=== PATIENT | male | born 1955 | race Caucasian/White ===

== ENCOUNTER 2023-07-18 06:37 | Inpatient (IN) | payer MEDICARE, MEDICAID, SELFPAY ==
[2023-07-18] VITALS (26 sets, daily range): BP systolic 113–134; BP diastolic 63–92; PULSE 55–108; RESP 10–26; TEMP 36.4–36.8; O2SAT 97–100; BMI 30.4
--- NOTE | 2023-07-18 | ECHO_ITS ---
Patient Info Name: Robert Rothman Age: 68 years : 1955 Gender: Male Ht: 75 in Wt: 250 lbs BSA: 2.48 m2 HR: 80 bpm BP: 134 / 92 mmHg Heart Rhythm: Sinus Rhythm Technical Quality: Fair Exam Date: 07/18/2023 1:25 PM Exam Location: [facility] Pulmonary Patient Status: Inpatient Admit Date: 07/18/2023 Staff Ordering Physician: Fermín Bansal MD Circulation Supervisor: Kelsy Landon RDCS Attending Provider: Everton Garsia MD Exam Type: CA echo doppler color flow Study Info Indications - STEMI Complete two-dimensional, color flow and Doppler transthoracic echocardiogram is performed. Summary 1. Complete two-dimensional, color flow and Doppler transthoracic echocardiogram is performed. 2. Normal left ventricular size and thickness. Overall good left ventricular contractility with an ejection fraction of 60-65%. It is small area of basal inferior wall hypokinesis. Normal diastolic function. 3. Mild right ventricular enlargement and hypokinesis. 4. No significant valve disease. 5. Normal sinus rhythm. Left Ventricle Left ventricular chamber dimension is normal. Left ventricular systolic function is normal, estimated at 60-65%. There is no increased left ventricular wall thickness. Left ventricular septal wall motion is normal. The left ventricular diastolic function is normal. Right Ventricle Right ventricular chamber dimension is mildly enlarged. Right ventricular systolic function is reduced. Left Atria Left atrial chamber dimension is normal. Right Atria Right atrial chamber dimension is normal. Aortic Valve The aortic valve is trileaflet. There is no aortic valve sclerosis. There is no aortic valve stenosis. There is no aortic valve regurgitation. Pulmonic Valve The pulmonic valve is normal. There is no pulmonic valve stenosis. There is no pulmonic regurgitation. Mitral Valve The mitral valve has normal leaflets. There is no mitral valve stenosis. There is no mitral valve regurgitation. Tricuspid Valve The tricuspid valve leaflets are normal. There is no significant tricuspid valve stenosis. There is trace tricuspid valve regurgitation. No pulmonary hypertension, estimated pulmonary arterial systolic pressure is Empty. Pericardium/Pleural The pericardium appears normal. There is no pericardial effusion. Inferior Vena Cava Normal inferior vena cava with >50% collapse upon inspiration consistent with Empty right atrial pressure, Empty. Aorta The aortic root size at the sinus of Valsalva is normal. The prox ascending aorta size is normal. Left Ventricular Outflow Tract Name Value Normal LVOT 2D LVOT Diameter 2.1 cm Pulmonic Valve Name Value Normal RVOT Doppler RVOT Peak Gradient 2 mmHg PV Doppler PV Peak Gradient 4 mmHg Mitral Valve Name Value Normal
--- NOTE | ~2023-07-18 | US_ITS ---
EXAMINATION: US venous doppler [facility] DATE: 07/18/2023 14:44 INDICATION: Chest pain and prior pulmonary embolism. TECHNIQUE: Grayscale ultrasound images without and with compression and Doppler ultrasound images of the bilateral lower extremity veins were obtained. COMPARISON: None. FINDINGS: The visualized portions of right common femoral vein, profunda (deep) femoral vein, femoral vein, pop liteal vein, posterior tibial veins, peroneal veins, gastrocnemius vein and greater saphenous vein ou tflow are patent. The visualized portions of left common femoral vein, profunda femoral vein, femoral vein, popliteal v ein, posterior tibial veins, peroneal veins, gastrocnemius vein and greater saphenous vein outflow ar e patent. IMPRESSION: 1. No deep venous thrombosis in either lower limb. Reviewed, dictated and finalized at location A.
--- NOTE | ~2023-07-18 | US_ITS ---
EXAMINATION: US arterial duplex LE RT DATE: 07/19/2023 10:26 INDICATION: Assess for pseudoaneurysm at the right groin TECHNIQUE: Multiple grayscale and Doppler ultrasound images of the right groin were obtained. COMPARISON: None FINDINGS: Visualized proximal right superficial femoral and profunda femoral arteries appear normal, both with laminar triphasic arterial waveforms with brisk systolic upstrokes. No hematomas or pseudoaneurysm id entified. The region of the right common femoral artery was obscured by bandaging material at the rig ht groin. IMPRESSION: 1. Normal proximal right superficial and profunda femoral arteries with no evident hematoma or pseudo aneurysm. Region of the common femoral artery was unable to be visualized due to bandaging material. Reviewed, dictated and finalized at location A. IMPRESSION: 1. Normal proximal right superficial and profunda femoral arteries with no evid ent hematoma or pseudoaneurysm. Region of the common femoral artery was unable to be visualized due to bandaging material.
--- NOTE | ~2023-07-18 | XR_ITS ---
Portable chest x-ray Comparison: None Clinical History: Chest pain Findings: COPD pattern of the lungs is present. There is focal airspace opacities left lung base, no nspecific. No pleural effusion or pneumothorax. Cardiomediastinal silhouette is stable. Bones and so ft tissues are unremarkable. Impression: COPD. Focal left basilar airspace opacity, somewhat indeterminate. Focal pneumonia or scarring are consider ations. Reviewed, dictated and finalized at location M. Impression: COPD. Focal left basilar airspace opacity, somewhat indeterminate. Focal pneumonia or scarring are considerations.
--- NOTE | 2023-07-18 06:40 | ECG_ITS ---
Measurements Intervals [place] Rate: 83 P: CO: 0 QRS: 20 QRSD: 87 T: -23 QT: 366 QTc: 430 Interpretive Statements ATRIAL FIBRILLATION MARKED ST ELEVATION, CONSIDER INFERIOR INJURY [MARKED ST ELEVATION W/O NORMALLY INFLECTED T-WAVE IN II/aVF] ACUTE PA NO PREVIOUS ECG AVAILABLE FOR COMPARISON Electronically Signed On 07-18-2023 12:20:54 CDT by Sai Alvarez M.D.
[2023-07-18] MEDS: ASPIRIN 81 MG CHEWABLE TABLET 324 MG PO (06:55)
[2023-07-18] MEDS: HEPARIN SODIUM 5,000 UNITS/ML VIAL 4000 UNITS IV PUSH (06:56)
--- NOTE | 2023-07-18 06:57 | ED.GENADULT ---
HPI - General Adult General Chief complaint: Shortness of Breath/Dyspnea Stated complaint: sob, fever, cp Time Seen by Provider: 07/18/23 06:47 History of Present Illness HPI narrative: Patient presents to the emergency department with persistent left sided chest pain. Pain radiates into his left arm. Pain has been intermittent for the past couple days. Patient has a history of emphysema and is short of breath. Stop smoking 8 years ago. Denies any cardiac history. EKG shows elevation in the inferior leads consistent with STEMI. Patient is in no distress Review of Systems Review of Systems: Review of systems negative except for what is documented in the HPI Exam Narrative: GENERAL: Well-appearing, well-nourished, and in no acute distress. HEAD: Normocephalic, atraumatic. EYES: PERRLA and EOMI. ENT: Nares clear, no rhinorrhea or epistaxis. Mucous membranes moist. NECK: Supple. CHEST: Clear to auscultation. No respiratory distress. HEART: Regular rate and rhythm. ABDOMEN: Soft, nontender, nondistended. EXTREMITIES: Normal range of motion. No edema. SKIN: Warm, dry, no rash. NEURO: No focal deficits. Alert and oriented x3. PSYCH: Normal mood and affect. Course Course Emergency Course: EKG consistent with inferior STEMI. Discussed with interventionalist on-call. Aspirin and heparin ordered. Patient will go to the [facility] Vital Signs Vital signs: Vital Signs Temperature 36.6 C 07/18/23 06:42 Pulse Rate 108 H 07/18/23 06:42 Respiratory Rate 25 H 07/18/23 06:42 Blood Pressure 134/89 07/18/23 06:42 Pulse Oximetry 100 07/18/23 06:42 Oxygen Delivery Room Air 07/18/23 06:42 Temperature 36.6 C 07/18/23 06:42 Pulse Rate 108 H 07/18/23 06:42 Respiratory Rate 25 H 07/18/23 06:42 Blood Pressure 134/89 07/18/23 06:42 Pulse Oximetry 100 07/18/23 06:42 Oxygen Delivery Room Air 07/18/23 06:42 Medical Decision Making Vital Signs Vital Signs: Vital Signs Temperature 36.6 C 07/18/23 06:42 Pulse Rate 108 H 07/18/23 06:42 Respiratory Rate 25 H 07/18/23 06:42 Blood Pressure 134/89 07/18/23 06:42 Pulse Oximetry 100 07/18/23 06:42 Oxygen Delivery Room Air 07/18/23 06:42 Temperature 36.6 C 07/18/23 06:42 Pulse Rate 108 H 07/18/23 06:42 Respiratory Rate 25 H 07/18/23 06:42 Blood Pressure 134/89 07/18/23 06:42 Pulse Oximetry 100 07/18/23 06:42 Oxygen Delivery Room Air 07/18/23 06:42 Lab Data 07/18/23 06:52 07/18/23 06:52 Labs: Lab Results 07/18/23 Range/Units 06:52 WBC Pending RBC Pending Hgb Pending Hct Pending MCV Pending MCH Pending MCHC Pending RDW Pending Plt Count Pending MPV Pending Immature Gran % (Auto) Pending Neut % (Auto) Pending Lymph % (Auto) Pending [place] % (Auto) Pending Eos % (Auto) Pending Baso % (Auto) Pending Lymph # (Auto) Pending [place] # (Auto) Pending Eos # (Auto) Pending Baso # (Auto) Pending Abs Immat Gran (auto) Pending Absolute Neuts (auto) Pending Absolute Nucleated RBC Pending Nucleated RBC % Pending Sodium Pending Potassium Pending Chloride Pending Carbon Dioxide Pending Anion Gap Pending BUN Pending Creatinine Pending Estim Creat Clear Calc Pending Estimated GFR Pending Glucose Pending Calcium Pending Total Bilirubin Pending AST Pending ALT Pending Alkaline Phosphatase Pending Total Protein Pending Albumin Pending Discharge Plan Discharge Clinical Impression: ST elevation (STEMI) myocardial infarction Patient Disposition: Still a Patient Condition: Serious Follow-up/Referrals: UNKNOWN,DOCTOR [Primary Care Provider] - Time of Disposition: 06:59
[2023-07-18 07:07] LABS: Alanine Aminotransferase 46 U/L (6-50); Alkaline Phosphatase 87 U/L (38-126); Anion Gap 9 mmol/L (8-16); Aspartate Amino Transferase 300 U/L (17-59); Bilirubin,Total 1.2 mg/dL (0.2-1.3); Blood Urea Nitrogen 12 mg/dL (9-20); Calcium 9.5 mg/dL (8.4-10.2); Carbon Dioxide 29 mmol/L (22-30); Chloride 93 mmol/L (98-107); Estimated CRCL calculation 91 ml/min; Estimated Glomerular Filt Rate > 60; Glucose 137 mg/dL (65-110); Potassium 4.2 mmol/L (3.4-5.0); Sodium 131 mmol/L (137-145)
[2023-07-18 07:12] LABS: Basophils Percent Auto 0.2 % (0.2-1.2); Hemoglobin 16.3 g/dL (14.0-18.0); Immature Granulocyte Absolute 0.05 K/mm3 (0.00-0.031); Immature Granulocyte Percent A 0.4 % (0-0.5); Lymphocytes Percent Auto 6.7 % (18.3-44.2); Mean Corpuscular Hemoglobin 30.6 pg (26-34); Mean Corpuscular Volume 90.1 fl (80-100); Mean Platelet Volume 8.1 fl (7.4-10.4); Monocytes Absolute Auto 1.3 K/mm3 (0.1-0.6); Neutrophils Percent Auto 82.7 % (45.5-73.1); Platelet Count Result 245 k/mm3 (150-375); Red Blood Count 5.33 M/mm3 (4.6-6.20); White Blood Count 13.3 K/mm3 (4.5-10.0)
--- NOTE | 2023-07-18 07:19 | PM.IMHP ---
H&P: HPI History of Present Illness Date/Time: Date of etgjlso12/03/23 07:19 Chief Complaint: chest pain Narrative: this 68-year-old patient with no significant past history presents to the hospital with chest pain.Past medical history of pulmonary embolism and visi min. Quit smoking 2007. chest pain for the last couple days. EKG showed inferior ST elevation. No radiation of the pain. Associated with shortness of breath. Review of Systems Review of Systems: All systems reviewed & are unremarkable except as noted in HPI and below Constitutional: Constitutional: Denies chills, Denies fatigue, Denies fever(s), Denies headache(s) and Denies snoring Eyes: Eyes: Denies eye discharge and Denies loss of vision ENT: Denies dizziness, Denies headache(s), Denies nasal discharge and Denies sore throat Cardiovascular: Cardiovascular: Reports as per HPI, Reports chest pain, Denies syncope, Denies rapid heart rate, Denies leg edema, Reports dyspnea, Reports dyspnea on exertion, Denies orthopnea and Denies paroxysmal nocturnal dyspnea Respiratory: Respiratory: Denies chest congestion, Denies cough, Reports dyspnea, Reports dyspnea on exertion, Denies snoring and Denies wheezing Gastrointestinal: Gastrointestinal: Denies abdominal pain, Denies diarrhea, Denies nausea and Denies vomiting Genitourinary: Genitourinary: Denies hematuria, Denies dysuria, Denies flank pain and Denies urinary frequency Musculoskeletal: Musculoskeletal: Denies myalgias, Denies arthralgias and Denies joint swelling Neurologic: Denies Abnormal speech present, Denies dizziness, Denies syncope, Denies headache(s), Denies focal weakness and Denies loss of vision Psychiatric: Psychiatric: Denies anxiety and Denies depression Endocrine: Endocrine: Denies cold intolerance, Denies fatigue and Denies heat intolerance Hematologic/Lymphatic: Hematologic/Lymphatic: Denies easy bleeding and Denies easy bruising Allergic/Immunologic: Allergic/Immunologic: Denies urticaria and Denies wheezing PMFSH Past Medical History Medical History Emphysema lung Pulmonary embolism Family History Family History Mother Cancer Father Heart disease Social History Social History Smoking packs per day: 5 Smoking cigarettes per day: 100.0 Years smoked: 35 Smoking pack-years: 175.00 Smoking status: Former smoker Alcohol intake: current Drinks per week: 2 Substance use: never Substance use type: does not use Lack of Transportation: No Lack of Food: Never True Current Housing: I Have Housing Concerned About Future Housing: No Difficulty Paying Gas/Electric Bills: No Difficulty Paying for Meds: No Currently Unemployed: No Education: Decline to Answer Difficulty w/ Childcare or Family Care: No Spiritual care concerns: No Meds Home Medications and Allergies Home Medications Medication Instructions Recorded Confirmed Type aspirin 81 mg tablet,delayed 81 mg PO QAM #90 tabs 07/20/23 Rx release atorvastatin 80 mg tablet 80 mg PO DAILY #90 tabs 07/20/23 Rx clopidogrel 75 mg tablet 75 mg PO QAM #90 tabs 07/20/23 Rx Allergies Allergy/AdvReac Type Severity Reaction Status Date / Time lactose AdvReac Other Verified 07/18/23 08:54 Vital Signs Vital Signs - 24 hr 07/18/23 06:42 07/18/23 07:00 07/18/23 07:05 Temperature 36.6 C Pulse Rate 108 H 80 Respiratory Rate 25 H 12 Blood Pressure 134/89 134/92 H Pulse Oximetry 100 98 Oxygen Delivery Room Air Room Air Exam Const: General: cooperative, healthy appearing, comfortable, no acute distress, well developed and well nourished Nutritional Appearance: well nourished Orientation/consciousness: patient oriented x3 HENMT: Head: normal to inspection, normocephalic and atraumatic Ears: hearing grossly no
[2023-07-18 07:20] LABS: Lipase 31 U/L (23-300)
--- NOTE | 2023-07-18 07:22 | WPDHPUPDATE1 ---
History and Physical Update Update Date/Time: 07/18/23 07:22 History and Physical has been reviewed, including an updated exam of the patient. There are NO changes in the patient's condition. Risks, benefits, and alternatives have been discussed and questions answered. Patient agrees to proceed with procedure.
--- NOTE | 2023-07-18 07:22 | WPDMODSED ---
Moderate Sedation Note-Pt Data Patient Data Allergies Allergy/AdvReac Type Severity Reaction Status Date / Time No Known Allergies Allergy Verified 07/18/23 06:59 Sedation/Anesthesia: No previous sedation/anesthesia problems (including family history). Mod Sed Physical Exam Physical Exam Pre Procedural Exam: Normal: Appearance, Eyes, Ears, Nose, Neck, Throat, Airway, Lungs, Heart Size, Heart Rate, Heart Rhythm, Neuro Exam, Abdomen, Liver, Kidneys, Spleen, Breasts, Genitalia, Extremities and Skin Hours since solid foods: 8 Hours since liquid intake: 8 Mallampati Classification: class 1 Internal Medicine - PN: Obj Da Vital Signs Vital Signs: Vital Signs - 24 hr 07/18/23 06:42 07/18/23 07:00 07/18/23 07:05 Temperature 36.6 C Pulse Rate 108 H 80 Respiratory Rate 25 H 12 Blood Pressure 134/89 134/92 H Pulse Oximetry 100 98 Oxygen Delivery Room Air Room Air Labs 07/18/23 06:52 07/18/23 06:52 Labs: Laboratory Results - last 24 hr 07/18/23 07/18/23 06:51 06:52 WBC 13.3 H RBC 5.33 Hgb 16.3 Hct 48.0 MCV 90.1 MCH 30.6 MCHC 34.0 RDW 13.0 Plt Count 245 MPV 8.1 Immature Gran % (Auto) 0.4 Neut % (Auto) 82.7 H Lymph % (Auto) 6.7 L [place] % (Auto) 10.0 H Eos % (Auto) 0.0 Baso % (Auto) 0.2 Lymph # (Auto) 0.90 [place] # (Auto) 1.3 H Eos # (Auto) 0.0 Baso # (Auto) 0.0 Abs Immat Gran (auto) 0.05 H Absolute Neuts (auto) 11.0 H Absolute Nucleated RBC 0.0 Nucleated RBC % 0.0 Sodium 131 L Potassium 4.2 Chloride 93 L Carbon Dioxide 29 Anion Gap 9 BUN 12 Creatinine 0.90 Estim Creat Clear Calc 91 Estimated GFR > 60 Glucose 137 H Calcium 9.5 Total Bilirubin 1.2 AST 300 H ALT 46 Alkaline Phosphatase 87 Total Protein 9.0 H Albumin 5.0 Lipase 31 ASA Classification/Sedation ASA Classification/Sedation ASA Class: I Emergent: No Risks: Risks, benefits and alternatives explained and patient/family accepted plan for sedation. Patient re-evaluated immediately prior to sedation.
--- NOTE | 2023-07-18 07:23 | WPDCARDPROC ---
Cardiac Cath Procedure Note Date of procedure:: 07/24/23 Performing physician:: Everton Garsia MD Date of service 07/18/2023 Indication:: inferior STEMI Brief clinical history:: 68-year-old patient with no significant past history who presents to the hospital with intermittent chest pain for the last couple days. EKG shows inferior ST elevations Procedure Procedure performed:: 1-Moderate sedation that started at 7am and ended7:45 am at using 1mg of Versed and 25mg fentanyl. The registered nurse was liliana 2-Selective left and right coronary angiogram. 3-Left heart catheterization with measurement of LVEDP and measurement of gradient across aortic valve. 4-Penumbra Aspiration thrombectomy of RCA 4- Intravascular ultrasound of the right coronary artery. 5- Deployment of drug-eluting stent 3 mm covering distal RCA. 6- deployment of drug-eluting stent 3.5 mm covering mid RCA and overlapping with the distal RCA stent. 4-Right common femoral arterial angiogram. Sedation/Medication given:: Moderate sedation. Access site:: Right common femoral artery. Estimated blood loss:: 10cc Procedure note:: After informed consent patient was brought in to director of cardiac cath lab with the was draped and prepped in usual manner. Moderate sedation was given and the right groin was infiltrated using 1% lidocaine. six [place] sheath was obtained using micropuncture needle and the modified Seldinger technique. Selective left coronary angiogram was done using JL4 catheter with the tip of the catheter placed in the left main coronary artery. however there was not complete engagement of the left main. We went for Selective right coronary angiogram was done using JR4 guide catheter with the tip of the catheter placed to the right coronary artery. after that coronary a Marketing Programs Specialist 150 wire was advanced to distal RCA. after that we used Penumbra aspiration with retrieving couple large clots. and then balloon angioplasty done using 3 x 20 with several inflations. - intravascular ultrasound of the RCA was done. after that deployed drug-eluting stent 3 mm covering distal RCA and deployment under nominal pressure for 20 seconds. after that deployment of a drug-eluting stent 3.5 covering mid RCA and overlapping with the distal RCA stent. This was done under nominal pressure for 20 seconds and then the stent balloon was used to post dilate the overlap segment. Then we used a 3.5 x 15 noncompliant balloon and we used it to post dilate mid RCA stent the overlapping segment each under nominal pressure for 20 seconds. after that we used JL5 and selective angiogram of the left coronary system was done. After that 5 [place] pigtail catheter was advanced across the aortic valve into the left ventricle with measurement of LVEDP and measurement of gradient across aortic valve. Right common femoral arterial angiogram was done. Findings:: 1- left coronary artery is a large artery that divides into large LAD, large circumflex artery. Left main is free of disease 2- left anterior descending artery is a large artery that has diffuse minimal irregularities. 3- leftcircumflex artery is a large artery codominant. Minimal irregularities. 4- right coronary artery is totally occluded proximally. However after restoring blood flow there is a lesion extending from the mid to distal segment. 5-intravascular ultrasound of the RCA shows the diameter of the distal RCA was 3 mm and the mid segment 3.5 mm. 5- LVEDP was 15 mm mercury and no gradient across aortic valve. 6- opening arterial pressure was 130/80 and closing pressure was 120/80 7- right femoral artery angiogram shows no significant disease in the right common femoral artery. 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
[2023-07-18 07:25] LABS: INR 0.9; Prothrombin Time 13.1 Seconds (11.1-14.7)
[2023-07-18 07:26] LABS: Partial Thromboplastin Time 29.8 SECONDS (22.3-36.8)
--- NOTE | 2023-07-18 08:35 | ADMGEN ---
This patient, Robert Rothman, was admitted to Intensive Care Unit-6. Patient/family oriented to hospital policies and general routines including ID bracelet, bed and alarms, visiting hours, pain management, procedures, bathroom and other care routines, personal items, smoking policy, room service/diet, and visiting hours. Information on how to activate the Rapid Response Team has been discussed. Patient/Family are encouraged to report perceived risks to care and to ask questions if they do not understand what they are told or what they should do.
--- NOTE | 2023-07-18 08:44 | ECG_ITS ---
Measurements Intervals [place] Rate: 64 P: 91 UT: 338 QRS: -4 QRSD: 96 T: -55 QT: 410 QTc: 424 Interpretive Statements SINUS RHYTHM WITH FIRST DEGREE AV BLOCK LOW QRS VOLTAGE IN EXTREMITY LEADS [QRS DEFLECTION < 0.5 mV IN LIMB LEADS] INFERIOR MYOCARDIAL INFARCTION , PROBABLY RECENT WITH POSTERIOR EXTENSION [40+ ms Q WAVE AND/OR ST/T ABNORMALITY IN II/aVFPROM COMPARED TO ECG 07/18/2023 06:46:14 SINUS RHYTHM NOW PRESENT FIRST DEGREE AV BLOCK NOW PRESENT Electronically Signed On 07-18-2023 12:37:36 CDT by Sai Alvarez M.D.
--- NOTE | 2023-07-18 09:15 | WPDCNINT ---
Assessment and Plan Assessment and plan (1) Emphysema lung: Code(s): J43.9 - Emphysema, unspecified Status: Acute Assessment and Plan: Patient does have history of heavy smoking and emphysema although no formal PFTs available. He is asymptomatic and is not on any oxygen or treatment at home. Will order bronchodilators if needed this time continue to monitor. (2) ST elevation (STEMI) myocardial infarction: Qualifiers: Involved coronary artery: other coronary artery Qualified Code(s): I21.29 - ST elevation (STEMI) myocardial infarction involving other sites Code(s): I21.3 - ST elevation (STEMI) myocardial infarction of unspecified site Status: Acute Assessment and Plan: Inferior STEMI status post PCI and drug-eluting stent placement to RCA Integrilin infusion for another 12 hours as per Cardiology Check echocardiogram Aspirin, atorvastatin, Brilinta Was start beta-fly and Tyrese inhibitors Cardiology following IV fluids (3) History of pulmonary embolism: Code(s): Z86.711 - Personal history of pulmonary embolism Status: Acute Assessment and Plan: It appears the patient has history of pulmonary embolism 7-8 years ago and was on anticoagulation for 2 years after which she has discontinued. This time the presentation is consistent with STEMI as patient had elevated ST elevation elevated troponin and chest pain resolved after PCI. He is on room air. Hence there is no point to expose patient to additional contrast to check a CTA off lung. Plan is to check echocardiogram I will check Dopplers of lower extremity to rule out any DVT Plan DVT prophylaxis -currently on Integrilin infusion Nutrition -heart healthy diet Code Status - Full Code [facility] Chaser Consult Note Consult date: 07/18/23 Reason for consult: STEMI HPI: Robert Rothman is a 68 year old male with past medical history of emphysema and PE presented with chief complaint of chest pain that has been going on for last 2 days. Patient states the chest pain actually started almost a week ago and was on left side of chest and radiated to his left arm. He thought he had pulled a muscle noted. Chest pain had been intermittent for the last 1 week. But from last 2 days the pain has been constant. He rates at 4/10, achy in quality, left side of the chest in location with radiation to left arm. Pain was associated with nausea but no vomiting. No shortness of breaths. He did feel lightheaded. No passing out or dizziness. He denied any fever cough shortness of breath. All other systems were reviewed and were negative Patient states that he has diagnosis of emphysema and quit smoking in 2007. He states the 7 or 8 years ago he was diagnosed with blood clot in the lung and was on warfarin for 2 years then he quit taking it. He currently does not take any medications and has not seen any physician in many years. On arrival to the ER patient was found to be having marked ST elevation and inferior leads 2 3 and AVF. His troponin was 25. Patient was diagnosed with STEMI and was taken to cardiac catheterization lab. Was found to be having complete occlusion of RCA and had 2 stents placed. As per the relief pharmacist the floor was still not optimal and he was started on Integrilin infusion. His LVEDP was 16 and he was given some fluids. Patient now admitted to ICU further evaluation management. At this time he feels better and denies any complaints. He states his chest pain has resolved Review of Systems Review of Systems: All systems reviewed & are unremarkable except as noted in HPI and below (HPI) [facility] Past Medical History Medical History (Updated 07/18/23 @ 09:20 by Fermín Bansal MD) Emphysema lung Pulmonary embolism Family History Family History (Updated 07/18/23 @ 09:11 by Nita Chavez RN) Mother Cancer Father Heart disease Social History Social History (Reviewed 07/18/23 @ 07:21 by Everton
[2023-07-18 09:39] LABS: Hemoglobin A1C 5.5 % (<5.7)
[2023-07-18 09:40] LABS: Cholesterol 215 mg/dL (0-200); HDL Direct 64 mg/dL; Triglycerides 93 mg/dL (<150)
[2023-07-18 09:50] LABS: LDL Cholesterol Direct 102 mg/dL
--- NOTE | 2023-07-18 10:14 | PM.PNCARD ---
Progress Note: A&P Assessment and Plan (1) ST elevation (STEMI) myocardial infarction: Qualifiers: Involved coronary artery: other coronary artery Qualified Code(s): I21.29 - ST elevation (STEMI) myocardial infarction involving other sites Code(s): I21.3 - ST elevation (STEMI) myocardial infarction of unspecified site Status: Acute Assessment and Plan: Inferior STEMI, s/p PCI to the distal RCA with GODWIN x 1. Doing well post-PCI. Integrilin drip for 18 hours. ASA 81mg once daily indefinitely. Brilinta 90mg BID for at least 1 year. High-intensity statin. Echocardiogram ordered. Initial EKG prior to PCI shows inferior STEMI with what appears to be atrial fibrillation. Since PCI, patient has been in sinus rhythm with first-degree AV block. Will monitor on tele for now. Will hold off on anticoagulation unless patient has recurrent atrial fibrillation as the atrial fibrillation appears to have been ischemia driven and resolved with revascularization. Subjective Date/time seen: 07/18/23 10:14 Interval history: Reason for visit: Inferior STEMI HPI: This 68-year-old patient with no significant past history presents to the hospital with chest pain.? EKG showed inferior ST elevation.? No radiation of the pain.? Associated with shortness of breath. Date of service 07/18/2023: Patient went to the medical laboratory technologist emergently this morning with Dr. Garsia. S/p PCI with GODWIN x 2 in the distal RCA. Patient is doing well in the ICU. No chest pain, shortness of breath, orthopnea. Overall feeling well. Review of Systems Review of Systems: All systems reviewed & are unremarkable except as noted in HPI and below (HPI) Exam Const: General: comfortable and no acute distress HENMT: Mouth: Yes moist mucous membranes Eyes: General: appearance normal, both eyes and all related structures Sclera: sclerae normal Neck: Neck: supple Resp: Effort & Inspection: normal respiratory effort Auscultation: clear to auscultation bilaterally Cardio: Rate: regular rate Rhythm: regular rhythm Heart sounds: no murmurs Skin: General skin exam: normal color Neuro: Speech: normal speech Psych: Mental Status: mental status grossly normal Affect: normal affect Objective Data Vital Signs Vital Signs: Vital Signs - 24 hr 07/18/23 06:42 07/18/23 07:00 07/18/23 07:05 Temperature 36.6 C Pulse Rate 108 H 80 Respiratory Rate 25 H 12 Blood Pressure 134/89 134/92 H Pulse Oximetry 100 98 Oxygen Delivery Room Air Room Air Meds/Results Medications: Active Medications Generic Name Dose Route Start Last Admin Trade Name Freq PRN Reason Stop Dose Admin Aspirin 81 mg 07/19/23 09:00 Aspirin 81 Mg Enteric Tablet PO QAM DESI Atorvastatin Calcium 80 mg 07/18/23 09:05 Atorvastatin 40 Mg Tablet PO DAILY DESI Sodium Chloride 1,000 mls @ 125 mls/hr 07/18/23 08:44 Normal Saline Iv IV CONT 07/18/23 16:43 .Q8H ONE Eptifibatide 75 mg in 100 mls @ 18.144 mls/hr 07/18/23 09:00 Integrilin IV CONT 07/19/23 02:59 .Q5H31M DESI 2 MCG/KG/MIN Perflutren Lipid Microsphere 0 ml 07/18/23 08:49 Perflutren Lipid Microspheres 1.5 Ml Vial Diluted To 10 Ml Total Volume IV PUSH 07/21/23 08:50 ONCE PRN adequate visualization Protocol Ticagrelor 90 mg 07/18/23 21:00 Ticagrelor 90 Mg Tablet PO Q12HR [facility] Radiology Results: ITS Impressions Chest X-Ray 07/18/23 07:24 Impression: COPD. Focal left basilar airspace opacity, somewhat indeterminate. Focal pneumonia or scarring are considerations. Labs Labs: Laboratory Results - last 24 hr 07/18/23 07/18/23 06:51 06:52 WBC 13.3 H RBC 5.33 Hgb 16.3 Hct 48.0 MCV 90.1 MCH 30.6 MCHC 34.0 RDW 13.0 Plt Count 245 MPV 8.1 Immature Gran % (Auto) 0.4 Neut % (Auto) 82.7 H Lymph % (Auto) 6.7 L Andrews % (Auto) 10.0 H Eos % (Auto) 0.0 Baso % (Auto) 0.2 Lymph # (A
[2023-07-18] MEDS: SODIUM CHLORIDE 0.9% IV 1,000 ML 125 ML IV CONT (11:32)
[2023-07-18] MEDS: ATORVASTATIN 40 MG TABLET 80 MG PO (11:32)
[2023-07-18] MEDS: EPTIFIBATIDE 0.75 MG/ML 75 MG/100 ML VIAL 18.14 MG IV CONT ×3 (12:32→23:05)
[2023-07-18] MEDS: ALBUTEROL SULFATE NEB 2.5 MG/3 ML INH INHALATION (13:53)
[2023-07-18] MEDS: IPRATROPIUM BR 0.02% INH SOLN 0.5 MG/2.5 ML VIAL INHALATION (13:53)
[2023-07-18] MEDS: TICAGRELOR 90 MG TABLET PO (21:52)
[2023-07-19] VITALS (18 sets, daily range): BP systolic 92–122; BP diastolic 49–91; PULSE 53–77; RESP 11–25; TEMP 36.6–37; O2SAT 91–100
[2023-07-19 04:38] LABS: Hematocrit 39.2 % (42.0-52.0); Hemoglobin 13.1 g/dL (14.0-18.0); Mean Corpuscular HGB Conc 33.4 g/dl (32-36); Mean Corpuscular Hemoglobin 30.3 pg (26-34); Mean Corpuscular Volume 90.7 fl (80-100); Mean Platelet Volume 8.1 fl (7.4-10.4); Platelet Count Result 157 k/mm3 (150-375); Red Blood Count 4.32 M/mm3 (4.6-6.20); Red Cell Distribution Width 13.2 % (11.5-14.5); White Blood Count 9.4 K/mm3 (4.5-10.0)
[2023-07-19 04:48] LABS: Alanine Aminotransferase 38 U/L (6-50); Albumin Level 3.8 g/dL (3.5-5.1); Alkaline Phosphatase 68 U/L (38-126); Anion Gap 4 mmol/L (8-16); Aspartate Amino Transferase 220 U/L (17-59); Bilirubin,Total 1.2 mg/dL (0.2-1.3); Blood Urea Nitrogen 13 mg/dL (9-20); Calcium 8.2 mg/dL (8.4-10.2); Carbon Dioxide 28 mmol/L (22-30); Chloride 99 mmol/L (98-107); Estimated CRCL calculation 90 ml/min; Estimated Glomerular Filt Rate > 60; Glucose 99 mg/dL (65-110); Magnesium 2.2 mg/dL (1.6-2.3); Sodium 131 mmol/L (137-145)
--- NOTE | 2023-07-19 08:11 | WPDINTPN ---
Progress Note: A&P Assessment and Plan (1) Emphysema lung: Code(s): J43.9 - Emphysema, unspecified Status: Acute Assessment and Plan: Patient does have history of heavy smoking and emphysema although no formal PFTs available. Continue p.r.n. bronchodilators (2) ST elevation (STEMI) myocardial infarction: Qualifiers: Involved coronary artery: other coronary artery Qualified Code(s): I21.29 - ST elevation (STEMI) myocardial infarction involving other sites Code(s): I21.3 - ST elevation (STEMI) myocardial infarction of unspecified site Status: Acute Assessment and Plan: Inferior STEMI status post PCI and drug-eluting stent placement to RCA Integrilin infusion for another 12 hours as per Cardiology Aspirin, atorvastatin, Brilinta Hold beta-blockers due to heart block and bradycardia Cardiology following Off iV fluids Echocardiogram 1. Complete two-dimensional, color flow and Doppler transthoracic echocardiogram is performed. ? 2. Normal left ventricular size and thickness.? Overall good left ventricular contractility with an ejection fraction of 60-65%.? It is small area of basal inferior wall hypokinesis.? Normal diastolic function. ? 3. Mild right ventricular enlargement and hypokinesis. ? 4. No significant valve disease. ? 5. Normal sinus rhythm. (3) History of pulmonary embolism: Code(s): Z86.711 - Personal history of pulmonary embolism Status: Acute Assessment and Plan: It appears the patient has history of pulmonary embolism 7-8 years ago and was on anticoagulation for 2 years after which she has discontinued. This time the presentation is consistent with STEMI as patient had elevated ST elevation elevated troponin and chest pain resolved after PCI. He is on room air. Hence there is no point to expose patient to additional contrast to check a CTA off lung. Echo as above Dopplers of lower extremity negative for DVT (4) Anemia: Code(s): D64.9 - Anemia, unspecified Status: Acute Assessment and Plan: Hemoglobin dropped from 16.3-13.1 this morning. This could be dilutional as patient received IV fluids. Check ultrasound to rule out pseudoaneurysm. Recheck hemoglobin later in the day. Hold any anticoagulation except from dual antiplatelet therapy Plan DVT prophylaxis -SCDs. I anticipate patient will ambulate today Nutrition -heart healthy diet Code Status - Full Code Transfer out ICU today Subjective Date/time seen: 07/19/23 Overnight events reviewed. Afebrile Denies any new complaints states that he has he has cough which has been mostly associated with clear phlegm. He states that he has chronic cough from his emphysema. He denies any chest. Patient denies fever, chest pain, shortness of breath, nausea vomiting, abdominal pain,, diarrhea, headache or constipation. No pain in the groin or flanks. All other systems were reviewed and were negative Second-degree type 1 av block on the is telemetry Other vitals acceptable Tolerating p.o. diet Interval history: Reason for visit: Inferior STEMI HPI: This 68-year-old patient with no significant past history presents to the hospital with chest pain.? EKG showed inferior ST elevation.? No radiation of the pain.? Associated with shortness of breath. Date of service 07/18/2023: Patient went to the metallurgical lab technician emergently this morning with Dr. Garsia. S/p PCI with GODWIN x 2 in the distal RCA. Review of Systems Review of Systems: All systems reviewed & are unremarkable except as noted in HPI and below (HPI) Exam Narrative: General: Pt is alert awake and in NAD Lungs/Chest: Trachea central breath sounds are decreased overall bilaterally,, No crackles or wheezing. Cardiac: RRR. Normal S1 S2. No murmurs Circulation: Dorsalis pedis pulses are intact and symmetrical. Abdomen: Normal bowel sounds.. Soft. NT. ND. Extremities: No clubbing, cyanosis or edema. Warm, right groin mild tender
--- NOTE | 2023-07-19 08:23 | ECG_ITS ---
Measurements Intervals [place] Rate: 60 P: 85 AK: 274 QRS: -2 QRSD: 84 T: -53 QT: 426 QTc: 428 Interpretive Statements SINUS RHYTHM WITH FIRST DEGREE AV BLOCK WITH FREQUENT SUPRAVENTRICULAR PREMATURE COMPLEXES IN A BIGEMINAL PATTERN LOW QRS VOLTAGE IN EXTREMITY LEADS [QRS DEFLECTION < 0.5 mV IN LIMB LEADS] INFERIOR MYOCARDIAL INFARCTION , PROBABLY RECENT WITH POSTERIOR EXTENSION [40+ ms Q WAVE AND/OR ST/T ABNORMALITY IN II/aVFPROM ACUTE [place] COMPARED TO ECG 07/18/2023 09:03:30 NO SIGNIFICANT CHANGES Electronically Signed On 07-19-2023 15:44:04 CDT by Ramya Ruano M.D.
[2023-07-19] MEDS: ASPIRIN 81 MG ENTERIC TABLET PO (08:39)
[2023-07-19] MEDS: ATORVASTATIN 40 MG TABLET 80 MG PO (08:39)
[2023-07-19] MEDS: TICAGRELOR 90 MG TABLET PO (08:39)
[2023-07-19 12:07] LABS: Hematocrit 40.3 % (42.0-52.0); Hemoglobin 13.5 g/dL (14.0-18.0); Mean Corpuscular HGB Conc 33.5 g/dl (32-36); Mean Corpuscular Hemoglobin 30.8 pg (26-34); Mean Corpuscular Volume 91.8 fl (80-100); Mean Platelet Volume 8.2 fl (7.4-10.4); Platelet Count Result 156 k/mm3 (150-375); Red Blood Count 4.39 M/mm3 (4.6-6.20); Red Cell Distribution Width 13.3 % (11.5-14.5); White Blood Count 9.8 K/mm3 (4.5-10.0)
--- NOTE | 2023-07-19 12:27 | PM.PNCARD ---
Progress Note: A&P Assessment and Plan (1) ST elevation (STEMI) myocardial infarction: Qualifiers: Involved coronary artery: other coronary artery Qualified Code(s): I21.29 - ST elevation (STEMI) myocardial infarction involving other sites Code(s): I21.3 - ST elevation (STEMI) myocardial infarction of unspecified site Status: Acute Assessment and Plan: Inferior STEMI, s/p PCI to the distal RCA with GODWIN x 2. Doing well post-PCI. Integrilin drip completed for 18 hours without any bleeding issues. ASA 81mg once daily indefinitely. Started on Brilinta, however, per medical case worker, patient will not be able to afford Brilinta has he does not have prescription coverage for Brilinta. Therefore, will switch to Plavix with administration of a loading dose of Plavix. High-intensity statin. Echocardiogram with LVEF 60-65%, no significant valvular disease, RV is mildly enlarged with reduced RVSF. Initial EKG prior to PCI shows inferior STEMI with what appears to be atrial fibrillation. Since PCI, patient has been in sinus rhythm with first-degree AV block. Will monitor on tele for now. Will hold off on anticoagulation unless patient has recurrent atrial fibrillation as the atrial fibrillation appears to have been ischemia driven and resolved with revascularization. Patient noted to have Wenckebach on tele without any significant bradycardia. Asymptomatic. Will monitor for now. Hold off on beta fly therapy for now. Okay to transfer out of the ICU. Anticipate discharge on 07/20. Subjective Date/time seen: 07/19/23 12:27 Interval history: Reason for visit: Inferior STEMI HPI: This 68-year-old patient with no significant past history presents to the hospital with chest pain.? EKG showed inferior ST elevation.? No radiation of the pain.? Associated with shortness of breath. Date of service 07/18/2023: Patient went to the phlebotomist lab assistant emergently this morning with Dr. Garsia. S/p PCI with GODWIN x 2 in the distal RCA. Patient is doing well in the ICU. No chest pain, shortness of breath, orthopnea. Overall feeling well. Date of service 07/19: No chest pain or shortness of breath. Feeling well. Per medical case worker, patient will not be able to afford Brilinta has he does not have prescription coveraged for Brilinta. Review of Systems Review of Systems: All systems reviewed & are unremarkable except as noted in HPI and below (HPI) Exam Const: General: comfortable and no acute distress HENMT: Mouth: Yes moist mucous membranes Eyes: General: appearance normal, both eyes and all related structures Sclera: sclerae normal Neck: Neck: supple Resp: Effort & Inspection: normal respiratory effort Auscultation: clear to auscultation bilaterally Cardio: Rate: regular rate Rhythm: regular rhythm Heart sounds: no murmurs Skin: General skin exam: normal color Neuro: Speech: normal speech Psych: Mental Status: mental status grossly normal Affect: normal affect Objective Data Vital Signs Vital Signs: Vital Signs - 24 hr 07/18/23 13:10 07/18/23 13:53 07/18/23 14:06 Temperature Pulse Rate 72 74 79 Respiratory Rate 19 12 19 Blood Pressure 113/87 Pulse Oximetry 98 Oxygen Delivery 07/18/23 14:00 07/18/23 14:00 07/18/23 14:11 Temperature Pulse Rate 72 72 68 Respiratory Rate 18 19 Blood Pressure 120/86 117/76 Pulse Oximetry 100 98 Oxygen Delivery 07/18/23 16:00 07/18/23 16:00 07/18/23 16:00 Temperature 36.7 C Pulse Rate 60 60 60 Respiratory Rate 11 L 11 L Blood Pressure 119/83 Pulse Oximetry 98 98 Oxygen Delivery Room Air 07/18/23 18:00 07/18/23 18:00 07/18/23 20:00 Temperature Pulse Rate 84 84 Respiratory Rate 19 Blood Pressure 118/89 Pulse Oximetry 98 Oxygen Delivery Room Air 07/18/23 23:11 07/18/23 20:00 07/18/23 22:00 Temperature Pulse Rate 57 L 55 L Respiratory Rate Blood Pressure Pulse Oximetry Oxygen Delivery Room Air
[2023-07-19] MEDS: ALBUTEROL SULFATE NEB 2.5 MG/3 ML INH INHALATION (16:56)
[2023-07-19] MEDS: IPRATROPIUM BR 0.02% INH SOLN 0.5 MG/2.5 ML VIAL INHALATION (16:56)
--- NOTE | 2023-07-19 21:15 | PC.NURSE ---
This patient, Robert Rothman, was transferred to [facility] on 07/19/23 at 2045. Personal belongings sent with patient. Report given to RN. Appropriate documentation sent with patient.
[2023-07-20] VITALS: BP 110/72; PULSE 59; PULSE 72; RESP 18; TEMP 36.9; O2SAT 99
[2023-07-20 04:00] VITALS: BP 104/75; PULSE 63; PULSE 70; RESP 20; TEMP 37; O2SAT 100
[2023-07-20 05:43] LABS: Hematocrit 38.7 % (42.0-52.0); Hemoglobin 12.8 g/dL (14.0-18.0); Mean Corpuscular HGB Conc 33.1 g/dl (32-36); Mean Corpuscular Hemoglobin 30.7 pg (26-34); Mean Corpuscular Volume 92.8 fl (80-100); Mean Platelet Volume 8.4 fl (7.4-10.4); Platelet Count Result 156 k/mm3 (150-375); Red Blood Count 4.17 M/mm3 (4.6-6.20); Red Cell Distribution Width 13.3 % (11.5-14.5); White Blood Count 7.6 K/mm3 (4.5-10.0)
[2023-07-20 05:57] LABS: Alanine Aminotransferase 33 U/L (6-50); Albumin Level 3.7 g/dL (3.5-5.1); Alkaline Phosphatase 75 U/L (38-126); Anion Gap 6 mmol/L (8-16); Aspartate Amino Transferase 109 U/L (17-59); Bilirubin,Total 0.7 mg/dL (0.2-1.3); Blood Urea Nitrogen 15 mg/dL (9-20); Carbon Dioxide 28 mmol/L (22-30); Chloride 98 mmol/L (98-107); Estimated CRCL calculation 90 ml/min; Estimated Glomerular Filt Rate > 60; Glucose 105 mg/dL (65-110); Magnesium 2.2 mg/dL (1.6-2.3); Potassium 3.3 mmol/L (3.4-5.0); Sodium 132 mmol/L (137-145)
[2023-07-20 08:00] VITALS: BP 114/77; PULSE 79; RESP 18; RESP 8; TEMP 36.2; O2SAT 100
[2023-07-20 08:05] VITALS: PULSE 79
[2023-07-20] MEDS: ASPIRIN 81 MG ENTERIC TABLET PO (08:26)
[2023-07-20] MEDS: ATORVASTATIN 40 MG TABLET 80 MG PO (08:26)
[2023-07-20] MEDS: CLOPIDOGREL BISULFATE 300 MG TABLET 600 MG PO (09:46)
--- NOTE | 2023-07-20 10:04 | PM.DS ---
DS: Admitting Diagnosis Discharge Date 07/20/2023 Admitting Diagnosis STEMI DS: Discharge Diagnosis Discharge Diagnosis (1) ST elevation (STEMI) myocardial infarction: Qualifiers: Involved coronary artery: other coronary artery Qualified Code(s): I21.29 - ST elevation (STEMI) myocardial infarction involving other sites Code(s): I21.3 - ST elevation (STEMI) myocardial infarction of unspecified site Status: Acute (2) Wenckebach: Code(s): I44.1 - Atrioventricular block, second degree Status: Acute DS: Summary Hospital Course Hospital Course: Inferior STEMI, s/p PCI to the distal RCA with GODWIN x 2. Doing well post-PCI. Integrilin drip completed for 18 hours without any bleeding issues. ASA 81mg once daily indefinitely. Started on Brilinta, however, per case monitor, patient will not be able to afford Brilinta as he does not have prescription coverage for Brilinta. Therefore, switched to Plavix with administration of a loading dose of Plavix.? High-intensity statin. Echocardiogram with LVEF 60-65%, no significant valvular disease, RV is mildly enlarged with reduced RVSF. Initial EKG prior to PCI shows inferior STEMI with what appears to be atrial fibrillation. Since PCI, patient has been in sinus rhythm with first-degree AV block. Will hold off on anticoagulation unless patient has recurrent atrial fibrillation as the atrial fibrillation appears to have been ischemia driven and resolved with revascularization. Patient noted to have Wenckebach on tele without any significant bradycardia. Asymptomatic. Hold off on beta fly therapy for now. Will have patient wear a 7 day event monitor. Outpatient follow up with Dr. Garsia. Status at Discharge Overall status at discharge: patient is back to baseline Time Spent with Patient Time attestation: Total time spent providing and/or coordinating discharge services: Exam Const: General: comfortable and no acute distress HENMT: Mouth: Yes moist mucous membranes Eyes: General: appearance normal, both eyes and all related structures Sclera: sclerae normal Neck: Neck: supple Resp: Effort & Inspection: normal respiratory effort Cardio: Rate: regular rate Rhythm: regular rhythm Skin: General skin exam: normal color Psych: Mental Status: mental status grossly normal Affect: normal affect DS: Data Data Completed and Pending Labs on day of discharge: Labs from last 24 hours 07/20/23 07/19/23 05:36 11:54 WBC 7.6 9.8 RBC 4.17 L 4.39 L Hgb 12.8 L 13.5 L Hct 38.7 L 40.3 L MCV 92.8 91.8 MCH 30.7 30.8 MCHC 33.1 33.5 RDW 13.3 13.3 Plt Count 156 156 MPV 8.4 8.2 Sodium 132 L Potassium 3.3 L Chloride 98 Carbon Dioxide 28 Anion Gap 6 L BUN 15 Creatinine 0.90 Estim Creat Clear Calc 90 Estimated GFR > 60 Glucose 105 Calcium 8.0 L Magnesium 2.2 Total Bilirubin 0.7 AST 109 H ALT 33 Alkaline Phosphatase 75 Total Protein 7.0 Albumin 3.7 Discharge Plan Discharge Attending physician on discharge: Sai Alvarez Consulting providers: Dannie Taylor; Fermín Bansal Discharging Clinician: Sai Alvarez Anticipated Discharge Date/Time: 07/20/23 09:58 Patient Disposition: Home, Self-Care Activity: february shower Diet: heart healthy Wound Care Instructions: follow printed instructions Discharge Instructions: [facility] [address] [place] [address] DISCHARGE INST
[2023-07-20] MEDS: POTASSIUM CHLORIDE 20 MEQ ER TABLET 40 MEQ PO (10:39)
== END 2023-07-20 10:55 | disposition home or self-care (01) | DRG 322 ==
LOC: ANHED 07:07 → ANHICU 07:50 → ANH3MED 07-19 20:32
PROVIDERS: Internal Medicine; Admitting Provider Internal Medicine Cardiovascular Disease; Emergency Provider Emergency Medicine; Visit Provider Internal Medicine
PROC: 4A023N7 Measurement of Cardiac Sampling and Pressure, Left Heart, Percutaneous Approach (ICD-10-PCS; CPT 93452; principal; 2023-07-18 07:00)
PROC: 4A023N7 Measurement of Cardiac Sampling and Pressure, Left Heart, Percutaneous Approach (ICD-10-PCS; 2023-07-18 07:00)
DX: I21.29 ST elevation (STEMI) myocardial infarction involving other sites (principal); J43.9 Emphysema, unspecified; I44.1 Atrioventricular block, second degree; D64.9 Anemia, unspecified; Z87.891 Personal history of nicotine dependence; Z86.711 Personal history of pulmonary embolism; Z28.21 Immunization not carried out because of patient refusal; Z79.82 Long term (current) use of aspirin; Z79.02 Long term (current) use of antithrombotics/antiplatelets
CPT/HCPCS: 36415; 71045; 80053; 80061; 83036; 83690; 83735; 84443; 84484; 85025; 85027; 85610; 85730; 93005; 93306; 93458; 93926; 93970; 94640; 96374; 99285; A9270; C1725; C1757; C1769; C1874; C1887; C1894; C9606; J0583; J1327; J1644; J7030; J7040